=== PATIENT | male | born 1985 | race Caucasian/White ===

== ENCOUNTER 2019-07-25 19:27 | Emergency (ER) | payer OTHER ==
--- NOTE | 2019-07-25 19:40 | PHYS DOC ---
Adult General Chief Complaint Chief Complaint: General Complaint HPI HPI 33-year-old male presents to the emergency department via EMS in place custody. Currently arrested for forgery, and routes to , patient started having "seizure activity." Patient has no history of epilepsy however is diagnosed with pseudoseizures. He's been on BuSpar previously however denies taking medications at this time. Resting comfortable this time. EMS discussion, patient was alert and oriented talking through the whole time while his leg was moving, there was no concern for postictal state. Patient has no formal seizure activity. Patient has no chest pain, shortness breath, nausea, vomiting, headache. Patient admits to smoking marijuana as well as methamphetamines over the last couple days. Review of Systems Review of Systems Constitutional: Denies fever or chills [] HENT: Denies nasal congestion or sore throat [] Respiratory: Denies cough or shortness of breath [] Cardiovascular: No additional information not addressed in HPI [] GI: Denies abdominal pain, nausea, vomiting, bloody stools or diarrhea [] Integument: Denies rash or skin lesions [] Neurologic: Denies headache, focal weakness or sensory changes [] All other systems were reviewed and found to be within normal limits, except as documented in this note. Physical Exam Physical Exam Constitutional: Well developed, well nourished, no acute distress, non-toxic appearance. [] HENT: Normocephalic, atraumatic, bilateral external ears normal, oropharynx moist, no oral exudates, nose normal. [] Eyes: PERRLA, EOMI, conjunctiva normal, no discharge. [] Cardiovascular:Heart rate regular rhythm, no murmur [] Lungs & Thorax: Bilateral breath sounds clear to auscultation [] Abdomen: Bowel sounds normal, soft, no tenderness, no masses, no pulsatile masses. [] Skin: Warm, dry, no erythema, no rash. [] Extremities: No tenderness, no edema. [] Neurologic: Alert and oriented X 3, no focal deficits noted. [] Psychologic: Affect normal, judgement normal, mood normal. [] EKG EKG [] Radiology/Procedures Radiology/Procedures [] Course & Med Decision Making Course & Med Decision Making Pertinent Labs and Imaging studies reviewed. (See chart for details) []33-year-old male presents to the emergency department via EMS in place custody. Currently arrested for forgery, and routes to PD, patient started having "seizure activity." Patient has no history of epilepsy however is diagnosed with pseudoseizures. He's been on BuSpar previously however denies taking medications at this time. Resting comfortable this time. EMS discussio n, patient was alert and oriented talking through the whole time while his leg was moving, there was no concern for postictal state. Patient has no formal seizure activity. Patient has a chest pain, shortness breath, nausea, vomiting, headache. Patient admits to taking marijuana as well as methamphetamines over the last couple days. Dragon Disclaimer Dragon Disclaimer This electronic medical record was generated, in whole or in part, using a voice recognition dictation system. Departure Departure Impression: Primary Impression: Medical clearance for incarceration Disposition: 01 HOME, SELF-CARE Condition: RELEASED IN CUSTODY Patient Instructions: Nonepileptic Seizures-Brief Additional Instructions: Recommend follow up with PCP 3 - 5 days Return to the ER with worsening symptoms, intractable pain, fever, altered mental status Tylenol/Motrin as needed for pain FELICITAS SANTIAGO MD Jul 25, 2019 19:40
[2019-07-25 19:45] VITALS: BP 174/78
== END 2019-07-25 19:45 | disposition home or self-care (01) ==
LOC: ER 19:27
DX: G40.89 Other seizures (principal)
CPT/HCPCS: 99283